=== PATIENT | female | born 2005 | race Caucasian/White ===

== ENCOUNTER 2023-02-18 05:10 | Emergency (ER) | payer OTHER ==
[~2023-02-18] VITALS: Ht 152.4 cm; Wt 47.6 kg
[2023-02-18 05:16] VITALS: BP 111/87
--- NOTE | 2023-02-18 05:23 | NUR ---
PT AMBULATED TO BED 7 WITH PARENT
--- NOTE | 2023-02-18 05:26 | NUR ---
Dr. Winston examining patient.
[2023-02-18 05:44] VITALS: BP 111/87
--- NOTE | 2023-02-18 05:44 | NUR ---
Patient discharged with v/s stable. Written and verbal after care instructions given and explained. Patient verbalized understanding. Ambulatory with steady gait. All questions addressed prior to discharge. Advised to follow up with PMD.
== END 2023-02-18 05:44 | disposition home or self-care (01) ==
LOC: MED 05:10
DX: J02.9 Acute pharyngitis, unspecified (principal)
CPT/HCPCS: 99283